=== PATIENT | female | born 1990 | race Caucasian/White ===

== ENCOUNTER 2018-05-24 12:48 | Emergency (ER) | payer BC, MEDICAID ==
[2018-05-24 12:53] VITALS: BP 123/80; PULSE 83; RESP 16; TEMP 98.3; O2SAT 100
--- NOTE | 2018-05-24 13:16 | C.PDOC ---
History Of Present Illness 27 y/o female presents to ED with generalized pruritic rash that are red little bumps on her arms, legs, chest, back, and face that started several days ago. Patient states it is intensely itchy but denies any similar contact exposures, fever, or SOB. Patient lives with her parents, hasnt slept anywhere new, and had no changes in her diet. Patient has been using Caladryl topically for itching. Time Seen by Provider: 05/24/18 13:03 Chief Complaint (Nursing): Abnormal Skin Integrity History Per: Patient History/Exam Limitations: no limitations Onset/Duration Of Symptoms: Days Current Symptoms Are (Timing): Still Present Past Medical History Reviewed: Historical Data, Nursing Documentation, Vital Signs Vital Signs: Last Vital Signs Temp 98.3 F 05/24/18 12:51 Pulse 83 05/24/18 12:51 Resp 16 05/24/18 12:51 BP 123/80 05/24/18 12:51 Pulse Ox 100 05/24/18 12:51 - Medical History PMH: Anemia Family History: States: No Known Family Hx - Social History Hx Tobacco Use: No Hx Alcohol Use: No Hx Substance Use: No - Immunization History Hx Tetanus Toxoid Vaccination: No Hx Influenza Vaccination: No Hx Pneumococcal Vaccination: No Review Of Systems Constitutional: Negative for: Fever Respiratory: Negative for: Shortness of Breath Skin: Positive for: Rash (on upper and lower extremities, chest, back, and face) Physical Exam - Physical Exam Appears: Non-toxic, No Acute Distress Skin: Rash (Scattered red papules with central ulcerations generalized with no distinct pattern) Head: Atraumatic, Normacephalic Eye(s): bilateral: Normal Inspection, PERRL, EOMI Oral Mucosa: Moist Throat: Normal, No Erythema, No Exudate Neck: Supple Chest: Symmetrical Cardiovascular: Rhythm Regular, No Murmur Respiratory: Normal Breath Sounds, No Rales, No Rhonchi, No Wheezing Gastrointestinal/Abdominal: Soft, No Tenderness Extremity: Bilateral: Normal Color And Temperature, Normal ROM Neurological/Psych: Oriented x3, Normal Speech ED Course And Treatment O2 Sat by Pulse Oximetry: 100 Disposition Counseled Patient/Family Regarding: Diagnosis, Need For Followup, Rx Given - Disposition Referrals: Julieta Ling [Staff Provider] - Disposition: HOME/ ROUTINE Disposition Time: 13:14 Condition: STABLE Prescriptions: Permethrin [Elimite] 60 gm TP DAILY #60 cream..g. 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 I have reviewed the chart and agree that the record accurately reflects my personal performance of the history, physical exam, medical decision making, and the department course for this patient. I have also personally directed, reviewed, and agree with the discharge instructions and disposition.
== END 2018-05-24 13:20 | disposition home or self-care (01) ==
LOC: C.ER 12:48
DX: B86 Scabies (principal)